=== PATIENT | female | born 1955 ===

== ENCOUNTER 2018-10-22 05:37 | Day surgery (SDC) | payer OTHER ==
[2018-10-19 16:06] VITALS: Ht 152.4 cm; Wt 69.6 kg
[~2018-10-22] VITALS: Ht 152.4 cm; Wt 69.6 kg
[2018-10-22] VITALS (13 sets, daily range): BP systolic 91–129; BP diastolic 49–68; PULSE 58–64; RESP 14–20
[~2018-10-22 05:37] MED LIST: CEFAZOLIN 2 GM/50 ML (PMX) 50 ML IVPB ONE; SOD CHLORIDE 0.9% 1,000 ML IV ONE
[2018-10-22] MEDS ORDERED: HYDR25TA6 PO (06:49)
[2018-10-22] MEDS ORDERED: BENA40TA56 PO (06:49)
[2018-10-22] MEDS ORDERED: METF850T13 PO (06:50)
[2018-10-22] MEDS ORDERED: OMEG-158 PO (06:55)
[2018-10-22] MEDS ORDERED: BUPIVACAINE 0.25% (MPF) 30 ML INJ ONE (06:59)
[2018-10-22] MEDS ORDERED: ATOR40TA68 PO (07:02)
[2018-10-22] MEDS ORDERED: METO-429 PO (07:02)
[2018-10-22] MEDS ORDERED: ASPI81TA52 PO (07:03)
[2018-10-22] MEDS ORDERED: CALC1TAB79 PO (07:04)
--- NOTE | 2018-10-22 07:08 | PREAC ---
Date/Time of Note Date/Time of Note DATE: 10/22/18 TIME: 07:07 Anesthesia Eval and Record Evaluation Time Pre-Procedure Interview DATE: 10/22/18 TIME: 07:07 Age 63 Sex female NPO: 8 hrs Preoperative diagnosis cholelithiasis Planned procedure laparoscopic cholecystectomy Past Medical History Past Medical History: Includes Cardio: HTN Endo: Diabetes Surgery & Anesthesia Issues No known issue Meds Anticoagulation: No Beta Burt within 24 hr: No Reason Beta Burt not given: Pt. not on B-Burt Reported Medications Calcium Carbonate/Vitamin D3 ([place] 500+D Tablet) 1 Each Tablet, 1 EACH PO BID, TAB 10/22/18 Aspirin (Low Dose Aspirin) 81 Mg Tablet.dr, 81 MG PO DAILY, #30 TAB 10/22/18 Metoprolol Tartrate* (Lopressor*) 50 Mg Tab, 50 MG PO BID, #60 TAB 10/22/18 Atorvastatin* (Atorvastatin*) 40 Mg Tablet, 40 MG PO QHS, #30 TAB 10/22/18 [place]-3/Dha/Epa/Fish Oil (FISH OIL 1,000 MG SOFTGEL) 1 Each Capsule, 1 EACH PO DAILY, CAP 10/22/18 Metformin Hcl* (Metformin Hcl*) 850 Mg Tablet, 850 MG PO WITH BREAKFAST DINNE, #60 TAB 10/22/18 Hydrochlorothiazide* (Hydrochlorothiazide*) 25 Mg Tab, 25 MG PO DAILY, #30 TAB 10/22/18 Benazepril Hcl* (Benazepril Hcl*) 40 Mg Tablet, 40 MG PO DAILY, #30 TAB 10/22/18 Current Medications Sodium Chloride 1,000 ml @ 75 mls/hr [id number] ONCE IV ; Start 10/22/18 at 05:30; Stop 10/22/18 at 18:49 Meds reviewed: Yes Allergies Coded Allergies: No Known Allergy (Unverified , 10/22/18) Allergies Reviewed: Yes Labs/Studies Labs Reviewed: Reviewed by anesthesiologist test: N/A Pre-procedure Exam Airway: Adequate mouth opening, Adequate thyromental dist Mallampati: Mallampati II Teeth: Normal Lung: Normal Heart: Normal ASA Physical Status ASA physical status: 2 Emergency: None Planned Anesthetic General/MAC: ETT Planned Pain Management Parenteral pain med Pre-operative Attestations Prior to commencing anesthesia and surgery, the patient was re-evaluated, there was verification of: *The patient's identity *The results of appropriate recent lab work and preoperative vital signs *The above evaluation not changing prior to induction *Anesthetic plan, risk benefits, alternative and complications discussed with patient/family; questions answered; patient/family understands, accepts and wishes to proceed. RENUKA ABREU Oct 22, 2018 07:08
[2018-10-22] MEDS ORDERED: PROPOFOL 20 ML ONE (07:25)
[2018-10-22] MEDS ORDERED: LIDOCAINE 2% (SDV) 5 ML INJ ONE (07:26)
[2018-10-22] MEDS ORDERED: ROCURONIUM 50 MG INJ ONE (07:26)
[2018-10-22] MEDS ORDERED: ONDANSETRON 4 MG INJ ONE ×2 (07:33→08:15)
[2018-10-22] MEDS ORDERED: DEXAMETHASONE 4 MG/ML 5 ML INJ ONE (07:33)
[2018-10-22] MEDS ORDERED: SUGAMMADEX SODIUM 200 MG/2 ML VIAL IV ONE (07:54)
--- NOTE | 2018-10-22 08:08 | OPR ---
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 She required surgical excision of her gallbladder. Risks alternatives benefits percent were discussed the patient. Patient expressed understanding and consents to the operation. Procedure Description Patient is taken to the OR and prepped and draped in usual sterile fashion. Surgical time was performed. IV antibiotics given. Supraumbilical midline incision was made with a 15 blade due to prior incision in the infraumbilical region. Dissection with cautery was carried onto the fascia. 0 Vicryl stay sutures were placed on either side of the midline. The fascia was opened and a Dooley trocar was introduced. Pneumoperitoneum was established. Midepigastric 12 mm optical trochars placed under direct physician. Right upper quadrant upper flank 5 mm optical trochars were placed under direct position. Upon initial inspection there are some adhesions to the gallbladder. The gallbladder was grasped with the fundus and retracted and lateral cephalad direction. [place] graspers were used to dissect out the cystic duct and cystic artery. The critical view was established. The cystic duct is divided to close proximal to distal and the divisions performed lap scopic scissors. Cystic artery was divided 3 clips proximally one clip distal and the divisions performed laparoscopic scissors. The gallbladder was taken of the gallbladder bed. Good hemostasis established. The gallbladder is retrieved Endo Catch bag. Ports removed under direct visualization. Supraumbilical incision is closed with a [id number] 0 Vicryl suture. The stay sutures also tied down. All skin incisions are closed with skin terry. Therapeutic subcutaneous local anesthesia was injected throughout the incision site. Dry dressings were applied. Desean OLIVIER Oct 22, 2018 08:08
--- NOTE | 2018-10-22 08:11 | PAC ---
Date/Time of Note Date/Time of Note DATE: 10/22/18 TIME: 08:10 Post-Anesthesia Notes Post-Anesthesia Note Last documented vital signs temp 98 bp 145/67 p78 r 16 Activity: WNL Respiratory function: WNL Cardiovascular function: WNL Mental status: Baseline Pain reasonably controlled: Yes Hydration appropriate: Yes Nausea/Vomiting absent: Yes RENUKA ABREU Oct 22, 2018 08:11
[2018-10-22] MEDS ORDERED: MEPERIDINE 25 MG INJ ONE (08:18)
[2018-10-22] MEDS ORDERED: HYDROmorphONE 1 MG/5 ML IV SYRINGE IV ONE (08:18)
[2018-10-22] MEDS ORDERED: HYDROmorphONE 1 MG/5 ML IV SYRINGE IV PRN ×3 (08:30)
[2018-10-22] MEDS ORDERED: FENTAnyl 50 MCG/ML VIAL IV PRN ×3 (08:30)
[2018-10-22] MEDS ORDERED: HYDROCODONE/APAP (5/325) TAB PO ONE (08:30)
[2018-10-22] MEDS ORDERED: hydrALAzine 20 MG INJ IV PRN (08:30)
[2018-10-22] MEDS ORDERED: DIPHENHYDRAMINE 50 MG INJ IV PRN (08:30)
[2018-10-22] MEDS ORDERED: METOCLOPRAMIDE 10 MG INJ IV PRN (08:30)
[2018-10-22] MEDS ORDERED: EPHEDrine SULFATE 50 MG/5 ML SYG IV PRN (08:30)
[2018-10-22] MEDS ORDERED: ONDANSETRON 4 MG INJ IV PRN (08:30)
[2018-10-22] MEDS ORDERED: ALBUTEROL 0.083% (NEB) 2.5 MG/3 ML AMP HHN PRN (08:30)
[2018-10-22] MEDS ORDERED: MEPERIDINE 25 MG INJ IV PRN (08:30)
[2018-10-22] MEDS ORDERED: OXYCODONE/ACETAMINOPHEN (5/325) TAB PO PRN ×2 (08:30)
[2018-10-22] MEDS ORDERED: LABETALOL HCL 20MG INJ IV PRN (08:30)
== END 2018-10-22 10:00 | disposition home or self-care (01) ==
LOC: SDS 05:37 → EDBD 05:37 → SDS 10:00
PROVIDERS: ATTEND Surgery
DX: K80.10 Calculus of gallbladder with chronic cholecystitis without obstruction (principal); E11.9 Type 2 diabetes mellitus without complications; I10 Essential (primary) hypertension
CPT/HCPCS: 47562; 82962; J0690; J1100; J1170; J2175; J2405; J3010; 88304